=== PATIENT | female | born 1945 | race Caucasian/White ===

== ENCOUNTER 2020-03-06 03:38 | Emergency (ER) | payer MEDICARE, OTHER ==
--- NOTE | 2020-03-06 04:35 | EDM.PDOC ---
ED HPI GENERAL MEDICAL PROBLEM - General Chief Complaint: General Stated Complaint: BLEEDING FROM MOUTH Time Seen by Provider: 03/06/20 04:15 Source of Information: Reports: Patient, RN History Limitations: Reports: Other (minimal old records) - History of Present Illness INITIAL COMMENTS - FREE TEXT/NARRATIVE: 74 yo female from [facility] presents after awakening with blood in her mouth. Is on ASA/Plavix. Has no pain. Is in our area for a week. Denies injury. Onset: Today Onset Date: 03/06/20 Duration: Minutes:, Resolved Prior to Arrival Location: Reports: Face (mouth) Quality: Reports: Other (no pain) Severity: Mild Improves with: Reports: Other (? 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: Reports: Other (see below) (none) - Related Data Allergies Allergy/AdvReac Type Severity Reaction Status Date / Time No Known Allergies Allergy Verified 03/06/20 03:57 Home Meds: Home Meds Aspirin [Children's Aspirin] 81 mg PO DAILY 03/06/20 [History] Clopidogrel [Plavix] 75 mg PO DAILY 03/06/20 [History] Gabapentin [Neurontin] 200 mg PO BID 03/06/20 [History] Insulin NPH Hum/Reg Insulin Hm [Humulin 70/30 Kwikpen] 75 units SQ BID 03/06/20 [History] Loratadine [Claritin] 10 mg PO DAILY 03/06/20 [History] Losartan [Cozaar] 25 mg PO DAILY 03/06/20 [History] Nitroglycerin [Nitrostat] 1 tab SL ASDIRECTED 03/06/20 [History] Pantoprazole 20 mg PO DAILY 03/06/20 [History] Pravastatin [Pravachol] 40 mg PO BEDTIME 03/06/20 [History] Propranolol [Inderal] 80 mg PO TID 03/06/20 [History] Vit C/E/Zn/Coppr/Lutein/Zeaxan [Preservision Areds 2 Softgel] 1 cap PO BID 03/06/20 [History] dilTIAZem HCL [Cartia Xt] 240 mg PO DAILY 03/06/20 [History] Past Medical History HEENT History: Reports: Allergic Rhinitis, Impaired Vision, Macular Degeneration Cardiovascular History: Reports: CAD, High Cholesterol, Hypertension, Prior Cardiac Arrest, Stents Gastrointestinal History: Reports: GERD 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: Fibroids, Polycystic Ovaries, Musculoskeletal History: Reports: Arthritis, Fracture Psychiatric History: Reports: Depression Endocrine/Metabolic History: Reports: Diabetes, Type II, Obesity/BMI 30+ Hematologic History: Reports: Anticoagulation Therapy - Infectious Disease History Infectious Disease History: Reports: Chicken Pox, Measles, Mumps - Past Surgical History Cardiovascular Surgical History: Reports: Coronary Artery Stent GI Surgical History: Reports: Appendectomy, Cholecystectomy Female Surgical History: Reports: Hysterectomy, Oophorectomy, Salpingo- Oophorectomy Social & Family History - Tobacco Use Smoking Status *Q: Never Smoker ED ROS GENERAL - Review of Systems Review Of Systems: See Below Constitutional: Reports: No Symptoms HEENT: Reports: Other (blood from mouth) Respiratory: Reports: No Symptoms Cardiovascular: Reports: No Symptoms Skin: Reports: No Symptoms Neurological: Reports: No Symptoms ED EXAM, GENERAL - Physical Exam Exam: See Below Exam Limited By: No Limitations General Appearance: Alert, WD/WN, No Apparent Distress, Obese Eye Exam: Bilateral Eye: Normal Inspection Ears: Normal External Exam, Normal Canal Ear Exam: Bilateral Ear: Auricle Normal, Canal Normal Nose: Normal Inspection, No Blood Throat/Mouth: Normal Inspection, Normal Lips, Normal Gums (Has none of her molars left. The 3 teeth on her R side of her maxilla have some decay at the gumline. There are varicosities on the underside of her tongue some of which appear to have bled recently, but not currently. ), Normal Oropharynx, Normal Voice, No Airway Compromise. No: Normal Teeth (has none of her molars left. The 3 on the ) Head: Atraumatic, Normocephalic Neck: Normal Inspection Respiratory/Chest: No Respiratory Distress, Lungs Clear, Normal Breath Sounds, No Accessory Muscle Use Cardiovascular: Regular Rate, Rhythm Extremities: Normal Inspection Neurological: Alert, Oriented, CN II-XII Intact, Normal Cognition, No Motor/Sensory Deficits Psychiatric: Normal Affect, Normal Mood Skin Exam: Warm, Dry, Intact, Normal Color, No Rash Course - Vital Signs Last Recorded V/S: Last Vital Signs Temp 36.7 C 03/06/20 04:08 Pulse 78 03/06/20 04:08 Resp 17 03/06/20 04:08 BP 182/77 H 03/06/20 04:08 Pulse Ox 97 03/06/20 04:08 Departure - Departure Time of Disposition: 04:35 Disposition: Home, Self-Care 01 Condition: Good Clinical Impression: History of hemorrhage of tongue - Discharge Information *PRESCRIPTION DRUG MONITORING PROGRAM REVIEWED*: Not Applicable *COPY OF PRESCRIPTION DRUG MONITORING REPORT IN PATIENT LEIGHANN: Not Applicable Referrals: PCP,None [Primary Care Provider] - Additional Instructions: Recheck if bleeding is heavy and does not stop. See your dentist upon return home You should be able to continue all your current medications. Sepsis Event Note (ED) - Evaluation Sepsis Screening Result: No Definite Risk - Focused Exam Vital Signs: Vital Signs Temp Pulse Resp BP Pulse Ox 03/06/20 04:08 36.7 C 78 17 182/77 H 97
== END 2020-03-06 04:49 | disposition home or self-care (01) ==
LOC: JP.ED 03:38
DX: K13.79 Other lesions of oral mucosa (principal); I10 Essential (primary) hypertension; E78.00 Pure hypercholesterolemia, unspecified; I25.10 Atherosclerotic heart disease of native coronary artery without angina pectoris; K21.9 Gastro-esophageal reflux disease without esophagitis; M19.90 Unspecified osteoarthritis, unspecified site; E11.9 Type 2 diabetes mellitus without complications; E66.9 Obesity, unspecified; Z68.38 Body mass index [BMI] 38.0-38.9, adult; Z79.82 Long term (current) use of aspirin; Z79.01 Long term (current) use of anticoagulants; Z79.02 Long term (current) use of antithrombotics/antiplatelets; Z79.4 Long term (current) use of insulin; Z79.899 Other long term (current) drug therapy
CPT/HCPCS: 99282